=== PATIENT | male | born 1955 | race Caucasian/White ===

== ENCOUNTER 2016-10-03 17:53 | Emergency (ER) | payer SELFPAY ==
[~2016-10-03 17:53] MED LIST: ASPIR 8181 MG; ASPIR 8181 MG PO; ASPIR-TRIN325 M1 PO; ASPIRIN EC81 M1 PO; ASPIRIN325 M1 PO; ATACAND; CALAN80 MG; COUMADIN5 M1 PO; COUMADIN5 MG PO; COUMADIN7.5 MG PO; FLEXERIL 10MG PO; FLOVENT HFA12 G IH; GLUCOPHAGE500 M3 PO; GLUCOPHAGE500 MG PO; GLYBURIDE; IRON325 M1 PO; K-DUR20 ME1 PO; K-DUR20 ME2 PO; LISINOPRIL-HCTZ PO; LISINOPRIL-HCTZ1 TAB PO; LISINOPRIL20 MG PO; LOPRESSOR25 MG/TA2 PO; LOPRESSOR25 MG/TA7 PO; LOVENOX80 MG/0.8 SQ; METFORMIN; METFORMIN HCL500; METFORMIN HCL500 MG PO; METOPROLOL SUCC25 MG PO; METOPROLOL TART25 MG PO; MINIPRESS2 MG; NO HOME MEDS; NORCO 5/325 TAB1 TAB PO; NORCO 5/3251 TAB PO; SPORANOX10 MG/ML PO; TRIAMTERENE-HCT1 CAP; ULTRAM50 MG PO; VERAPAMIL HCL80 MG; VYTORIN; ZOFRAN ODT4 MG/UDTAB PO
[2016-10-03 18:36] LABS: BASO % 0.4 % (0-2); EOS % 4.1 % (0-7); EOSINOPHIL ABSOLUTE COUNT 0.2 tho/cmm (0.0-0.7); HCT-HEMATOCRIT 40.9 % (36.0-53.5); HGB-HEMOGLOBIN 14.5 gm/dl (13.5-17.0); IMMATURE GRANULOCYTES ABSOLUTE 0.02 tho/cmm (0-0.03); IMMATURE GRANULOCYTES PERCENT 0.4 % (0-0.3); LYMPH ABSOLUTE COUNT 1.8 tho/cmm (0.8-4.5); MCH (MEAN CORPUSCULAR HGB) 30.7 pg (28.0-32.0); MCHC MEAN CORPUSCULAR HGB CONC 35.5 % (32.0-36.0); MCV (MEAN CELL VOLUME) 86.7 fl (82.0-96.0); MONO % 7.3 % (0-12); MONOCYTE ABSOLUTE COUNT 0.4 tho/cmm (0.0-1.2); NEUTROPHIL ABSOLUTE COUNT 3.1 tho/cmm (1.6-8.0); NEUTROPHIL-AUTOMATED 3.1 tho/cmm (1.6-8.0); NEUTROPHILS % 55.8 % (40-80); PLATELET COUNT 230 tho/cmm (150-450); RED BLOOD COUNT 4.72 mil/cmm (4.40-5.70); RED CELL DISTRIBUTION WIDTH 12.7 % (12.4-16.4); WHITE BLOOD COUNT 5.6 tho/cmm (4.0-10.0)
[2016-10-03 18:42] LABS: INR 0.9 INR (0.9-1.1); PROTHROMBIN TIME 10.6 SECONDS (9.0-13.6)
[2016-10-03 18:54] LABS: ALBUMIN 3.6 g/dl (3.5-5.0); ALKALINE PHOSPHATASE 72 U/L (33-138); ALT/SGPT 33 U/L (12-78); BILIRUBIN,TOTAL 0.3 mg/dl (0.0-1.5); BLOOD UREA NITROGEN 21 mg/dl (6-24); CALCIUM 8.7 mg/dl (8.5-10.5); CARBON DIOXIDE-VENOUS 23 mmol/L (22-32); CHLORIDE 105 mmol/l (96-110); CREATININE 1.28 mg/dl (0.60-1.30); GLUCOSE 327 mg/dL (70-110); SODIUM 137 mmol/L (135-145); eGFR VALUE FOR BLACK 70 mL/Min
[2016-10-03 18:55] LABS: ANION GAP 13 mmol/L (0-20)
[2016-10-03 18:56] LABS: AST/SGOT 21 U/L (10-40)
== END 2016-10-03 21:27 ==
LOC: EDMED 17:53
PROVIDERS: Physician Assistant
DX: E11.65 Type 2 diabetes mellitus with hyperglycemia (principal); R06.00 Dyspnea, unspecified; Z86.718 Personal history of other venous thrombosis and embolism; Z86.711 Personal history of pulmonary embolism; Z88.5 Allergy status to narcotic agent; Z79.4 Long term (current) use of insulin; Z79.84 Long term (current) use of oral hypoglycemic drugs; Z79.01 Long term (current) use of anticoagulants; Z79.899 Other long term (current) drug therapy
CPT/HCPCS: J7030; Q9967